=== PATIENT | male | born 1955 | race Hispanic/Latino ===

== ENCOUNTER 2018-07-17 05:25 | Day surgery (SDC) | payer OTHER ==
[2018-07-17] VITALS (7 sets, daily range): BP systolic 90–127; BP diastolic 46–95
[~2018-07-17] VITALS: Ht 165.1 cm; Wt 57.0 kg
[2018-07-17] MEDS ORDERED: SODIUM CHLORIDE 0.9% 1000ML 1,000 ML IV ONE (05:51)
[2018-07-17] MEDS ORDERED: PROPOFOL 10 MG/ML 20ML VIAL IV ONE (07:08)
== END 2018-07-17 08:19 | disposition home or self-care (01) ==
LOC: DAH 05:25 → ENDO 05:25
PROVIDERS: ATTEND Internal Medicine Gastroenterology
DX: K63.5 Polyp of colon (principal); K64.8 Other hemorrhoids; K59.01 Slow transit constipation; F17.210 Nicotine dependence, cigarettes, uncomplicated; Z79.899 Other long term (current) drug therapy; Z98.890 Other specified postprocedural states
CPT/HCPCS: 45380; 45385; A4606; J2704; J7030